=== PATIENT | female | born 1960 | race Caucasian/White ===

== ENCOUNTER → 2018-09-19 | Outpatient (CLI) | payer OTHER ==
--- NOTE | 2018-09-19 10:06 | PCVCIMAG ---
APPROVED REPORT Study performed: 09/19/2018 09:26:49 Exam: Stress Echocardiogram Indication: Palpitations , Dyspnea Patient Location: Echo lab Stress Nurse: Nguyen Alicea RN Room #: 2 Status: routine Ht: 5 ft 1 in HR: 66 bpm BP: 106/68 mmHg Rhythm: NSR Medical History Medical History: PALPITATIONS,BRADYCARDIA Cardiac Risk Factors: FHX of CAD Previous Cardiac Procedures: none Pretest Chest Pain Characteristics: No chest pain Procedure The patient underwent an Exercise Stress Test using the Alan Protocol. Blood pressure, heart rate, and EKG were monitored. An Echocardiogram was performed by security systems technician in four stages in quad fashion. At peak stress, four selected images were obtained and placed side by side with resting images for comparison. Stress Test Details Stress Test: Exercise stress testing was performed using a Alan protocol. HR Resting HR: 66 bpmMax Heart Rate (APMHR): 162 bpm Max HR Achieved: 187 bpmTarget HR (85% APMHR): 137 bpm % of APMHR: 115 Recovery HR: 99 bpm HR response to stress: Normal HR response to stress BP Resting BP: 106/68 mmHg Max BP: 134/64 mmHg Recovery BP: 116/60 mmHg BP response to stress: Normal blood pressure response to stress. ECG Resting ECG: Sinus Rhythm Stress ECG: Sinus Rhythm ST Change: Non-ischemic Arrhythmia: occ PACs Recovery ECG: Sinus Rhythm Recovery ST Change: Non-ischemic Recovery ST Deviation: -0.25 mm Recovery Arrhythmia: None Clinical Reason for Termination: Maximal effort Stress Symptoms: Fatigue Exercise duration: 9 min 00 sec Highest Stage Achieved: Stage 3: 3.4 mph at 14% grade. Exercise capacity: 10.1 METs Overall Exercise Capacity for Age: Average Scale: Active Angina Score: None No complications. Stress ECG Conclusion The patient exercised according to the ALAN protocol for 9:00 mins; achieving a work level of 10.1 METS. The resting heart rate of 66 bpm kallie to a maximum heart rate of 187 bpm. This value represent 115% of the maximal, age-predicted heart rate. The resting blood pressure of 106/68mmHg, kallie to a maximum blood pressure of 134/64 mmHg. The exercise test was stopped due to fatigue . Pre-Stress Echo The resting Echocardiogram showed normal left ventricular contractility with an estimated Ejection Fraction of about 55-60%. Normal wall motion in all segments on baseline images. Post-Stress Echo The stress Echocardiogram showed normal left ventricular contractility with an estimated Ejection Fraction of about 65-70%. Normal augmentation of wall motion in all segments on post stress images. Clinical No clinical or ECG evidence for ischemia. Conclusion Clinical Response: Non-ischemic Exercise Capacity: Average Stress ECG Response: Non-ischemic Stress Echo Images: Non-ischemic No prior study available for comparison. Other Information Study Quality: Good
--- NOTE | 2018-09-19 10:26 | PCVCIMAG ---
APPROVED REPORT Study performed: 09/19/2018 08:36:41 EXAM: Comprehensive 2D, Doppler, and color-flow Echocardiogram Patient Location: Echo lab Room #: 2Status: routine BSA: 1.58 HR: 66 bpmBP: 106/68 mmHg Rhythm: NSR Other Information Study Quality: Excellent Risk Factors: Cardiac Risk Factors: FHX of CAD Indications Bradycardia Dyspnea Palpitations 2D Dimensions IVSd: 7.94 (7-11mm)LVOT Diam: 18.81 (18-24mm) LVDd: 42.56 mm PWd: 6.18 (7-11mm)Ascending Ao: 26.39 (22-36mm) LVDs: 26.55 (25-40mm) Left Atrium: 29.17 (27-40mm) Aortic Root: 23.71 mm LV Single Plane 4CH: 54.08 % LV Single Plane 2CH: 60.66 % Biplane EF: 57.9 % Volumes Left Atrial Volume (Systole) Single Plane 4CH: 48.83 mLSingle Plane 2CH: 31.79 mL Biplane LA Volume: 40.00 mLLA ESV Index: 25.00 mL/m2 Aortic Valve AoV Peak Chema.: 1.53 m/s AO Peak Gr.: 9.36 mmHgLVOT Max P.03 mmHg LVOT Max V: 0.87 m/s BRAD Vmax: 1.58 cm2 Mitral Valve E/A Ratio: 1.0 MV Decel. Time: 139.10 ms MV E Max Chema.: 0.78 m/s MV A Chema.: 0.76 m/s IVRT: 89.97 ms TDI E/Lateral E': 7.09E/Medial E': 7.80 Medial E' Chema.: 0.10 m/s Lateral E' Chema.: 0.11 m/s Pulmonary Valve PV Peak Chema.: 0.92 m/sPV Peak Gr.: 3.41 mmHg Pulmonary Vein P Vein S: 0.44 m/sP Vein A: 0.30 m/s P Vein D: 0.33 m/sP Vein A Dur.: 96.9 msec P Vein S/D Ratio: 1.33 Tricuspid Valve TR Peak Chema.: 2.58 m/s TR Peak Gr.: 26.63 mmHg TV Vmax: 0.72 m/sPA Pressure: 34.00 mmHg Left Ventricle The left ventricle is normal size. There is normal LV segmental wall motion. There is normal left ventricular wall thickness. Left ventricular systolic function is normal. The left ventricular ejection fraction is within the normal range. LVEF is 55-60%. The left ventricular diastolic function is normal. Right Ventricle The right ventricle is normal size. The right ventricular systolic function is normal. Atria The left atrium size is normal. The right atrium size is normal. Aortic Valve Aortic valve is trileaflet. The aortic valve is normal in structure and function. No aortic regurgitation is present. There is no aortic valvular stenosis. Mitral Valve The mitral valve is normal in structure. There is no mitral valve regurgitation noted. No evidence of mitral valve stenosis. Tricuspid Valve The tricuspid valve is normal in structure. Mild tricuspid regurgitation with a PA pressure of 34 mmHg. Pulmonic Valve The pulmonary valve is normal in structure. There is no pulmonic valvular regurgitation. Great Vessels The aortic root is normal in size. The ascending aorta is normal in size. Aortic arch is normal in caliber. IVC is normal in size and collapses >50% with inspiration. Pericardium There is no pericardial effusion. There is no pleural effusion. <Conclusion> The left ventricle is normal size. There is normal left ventricular wall thickness. Left ventricular systolic function is normal. The left ventricular diastolic function is normal. The right ventricle is normal size. The left atrium size is normal. The right atrium size is normal. The aortic valve is normal in structure and function. The mitral valve is normal in structure. Mild tricuspid regurgitation with a PA pressure of 34 mmHg.
== END | disposition home or self-care (01) ==
LOC: PCVCIMAG 15:12
PROVIDERS: ATTEND Internal Medicine Cardiovascular Disease
DX: R00.2 Palpitations (principal); R06.00 Dyspnea, unspecified
CPT/HCPCS: 93306; 93351